=== PATIENT | female | born 1990 | race Caucasian/White ===

== ENCOUNTER 2017-06-16 19:45 | Emergency (ER) | payer OTHER ==
[~2017-06-16] VITALS: Ht 157.5 cm; Wt 55.8 kg
[2017-06-16] MEDS ORDERED: MEDR150D9 IM (20:06)
--- NOTE | 2017-06-16 20:10 | NUR ---
PT AOX4 DR MEEK TO EXAM
[2017-06-16] MEDS ORDERED: ONDANSETRON ODT 4 MG TAB.RAPDIS SL ONE (20:45)
--- NOTE | 2017-06-16 21:10 | NUR ---
Consuelo tomlinson in [facility] - 06/16/17 at [address] MEEK
--- NOTE | 2017-06-16 21:39 | NUR ---
MSE COMPLETED, PT D/'D HOME, ACI/RX X1 GIVEN. PT GOT DRESSED, AMBULATED W/O DIFF/TOOK ALL BELONGINGS.
[2017-06-16 21:42] VITALS: BP 110/64
[2017-06-16] MEDS ORDERED: ONDANSETRON ODT 4 MG TAB.RAPDIS ONE (21:44)
== END 2017-06-16 21:41 | disposition home or self-care (01) ==
LOC: ER 19:46
DX: R55 Syncope and collapse (principal); F32.9 Major depressive disorder, single episode, unspecified
CPT/HCPCS: 93005; 99283; A4663; Q0162